=== PATIENT | male | born 1945 | race African-American/Black ===

== ENCOUNTER 2025-05-24 19:40 | Inpatient (IN) | payer MEDICARE, MEDICAID ==
[~2025-05-24] VITALS: Ht 182.9 cm; Wt 83.1 kg
[~2025-05-24 19:40] MED LIST: ABIR250T MT; AMLO10TA80 MT; IRBE300T25 MT; POTA-354 MT; PRED5TAB MT; RIVA20TA MT
[2025-05-24 19:43] VITALS: O2SAT 96
[2025-05-24] MEDS: DILTIAZEM HCL 5MG/ML 5ML VIAL IV ONE (20:27)
[2025-05-24] MEDS: LEVOFLOXACIN 500MG PREMIX 100 ML IV ONE (20:27)
[2025-05-24 20:37] LABS: BASOPHILS % 0.3 % (0.0-2.0); EOSINOPHILS % 0.4 % (0.0-5.0); HEMATOCRIT. 37.3 % (42.0-52.0); HEMOGLOBIN. 12.3 g/dL (14.0-18.0); LYMPHOCYTES % 26.1 % (20.0-50.0); MEAN PLATELET VOLUME 8.6 fl (7.4-10.4); MONOCYTES % 3.3 % (2.0-8.0); NEUTROPHILS % 69.9 % (40.0-76.0); PLATELET 197 x1000/uL (130-400); RED BLOOD CELL COUNT 4.18 mill/uL (4.7-6.1); RED CELL DISTRIBUTION WIDTH 14.7 % (11.6-14.6)
[2025-05-24 20:42] LABS: INR 1.3
[2025-05-24 20:43] LABS: CREATININE 1.1 mg/dL (0.6-1.3); UREA NITROGEN BLOOD 13 mg/dL (9-23)
[2025-05-24 20:45] LABS: ASPARTATE AMINOTRANSFERASE 15 IU/L (<34); BILIRUBIN DIRECT 0.1 mg/dL (<=3.0); BILIRUBIN TOTAL 0.5 mg/dL (0.1-1.0); PROTEIN TOTAL 7.2 g/dL (6.0-8.3)
[2025-05-24 20:46] LABS: TROPONIN I HIGH SENSITIVITY 10 ng/L (3.0-53)
[2025-05-24] MEDS ORDERED: VENL-179 MT (21:19)
[2025-05-24] MEDS ORDERED: METF-1149 MT (21:19)
[2025-05-24] MEDS: SODIUM CHLORIDE 0.9% 2,700 ML IV ONE (21:41)
[2025-05-24 21:48] LABS: INFLUENZA TYPE A Presumptive Negative (Pres. Neg.)
[2025-05-24 21:49] LABS: INFLUENZA TYPE B Presumptive Negative (Pres. Neg.)
[2025-05-24 21:50] LABS: RESPIRATORY SYNCYTIAL VIRUS Not Detected (Not Detectd)
[2025-05-24 22:45] LABS: TROPONIN I HIGH SENSITIVITY 14 ng/L (3.0-53)
[2025-05-24 22:48] LABS: CLARITY URINE CLEAR (CLEAR); GLUCOSE URINE 1+ (NEGATIVE); KETONES URINE NEGATIVE (NEGATIVE); LEUKOCYTE ESTERASE URINE NEGATIVE (NEGATIVE); NITRITE URINE NEGATIVE (NEGATIVE); OCCULT BLOOD URINE NEGATIVE (NEGATIVE); PH URINE 6.0 (4.5-8.0); PROTEIN URINE NEGATIVE (NEGATIVE); SPECIFIC GRAVITY URINE 1.006 (1.005-1.030); UROBILINOGEN URINE 0.2 E.U./dL (0.2-1.0)
[2025-05-24 23:12] LABS: COLOR URINE STRAW (YELLOW)
[2025-05-24 23:14] LABS: BACTERIA URINE NONE SEEN; RBC URINE NONE SEEN /hpf (0-2); SQUAMOUS EPITHELIAL CELL URINE RARE /lpf (RARE/1+); WBC URINE NONE SEEN /hpf (0-2)
[2025-05-25] MEDS ORDERED: DOCUSATE SODIUM 100MG CAPSULE PO PRN (00:45)
[2025-05-25] MEDS ORDERED: ONDANSETRON HCL 4MG/2ML INJ IV PRN (00:45)
[2025-05-25] MEDS ORDERED: IPRATROPIUM/ALBUTEROL 0.5-3(2.5)MG/3ML NEB HHN PRN (00:45)
[2025-05-25] MEDS ORDERED: DEXTROSE 50% WATER 50ML SYRINGE IV PRN (01:00)
[2025-05-25] MEDS: SODIUM CHLORIDE 0.9% 1,000 ML IV SCH (03:13)
[2025-05-25] MEDS: VANCOMYCIN 1.75GM PMX (XELLIA) 350 ML IV NR (03:13)
[2025-05-25 04:23] VITALS: BP 135/105; PULSE 115; RESP 17; TEMP 36.7516
[2025-05-25 07:09] LABS: *AMPHETAMINES SCREEN URINE NEGATIVE (NEGATIVE); *BARBITURATES SCREEN URINE NEGATIVE (NEGATIVE); *BENZODIAZEPINES SCREEN URINE NEGATIVE (NEGATIVE); *COCAINE SCREEN URINE NEGATIVE (NEGATIVE); CANNABINOID URINE SCREEN PRESUMPTIVE POSITIVE (NEGATIVE); ECSTASY MDMA SCREEN URINE NEGATIVE (NEGATIVE); METHADONE URINE SCREEN NEGATIVE (NEGATIVE); OPIATES URINE SCREEN PRESUMPTIVE POSITIVE (NEGATIVE); PHENCYCLIDINE URINE SCREEN NEGATIVE (NEGATIVE)
[2025-05-25] MEDS: BLOOD SUGAR DIAGNOSTIC STRIP TEST SCH (07:30)
[2025-05-25 08:00] VITALS: BP 149/95; PULSE 123; RESP 18; TEMP 36.9; O2SAT 99
[2025-05-25] MEDS: INSULIN LISPRO 100 UNITS/ML SUBCUT SCH (08:00)
[2025-05-25] MEDS: APIXABAN 5 MG TABLET PO SCH (08:39)
[2025-05-25] MEDS: METOPROLOL TARTRATE 25MG TABLET PO SCH (08:40)
[2025-05-25] MEDS: PREDNISONE 5MG TABLET PO SCH (08:40)
[2025-05-25] MEDS: PANTOPRAZOLE SODIUM 40 MG/VIAL IV SCH (08:41)
[2025-05-25] MEDS ORDERED: PIPERACILLIN/TAZO 3.375G/50ML 50 ML IV SCH (09:00)
[2025-05-25 12:00] VITALS: BP 129/79; PULSE 101; RESP 15; TEMP 37.1; O2SAT 100
[2025-05-25 16:00] VITALS: PULSE 105; RESP 16; TEMP 36.7; O2SAT 100
[2025-05-25] MEDS: LEVOFLOXACIN 750MG PREMIX 150 ML IV SCH (17:47)
[2025-05-25 18:00] VITALS: BP 127/96; PULSE 112; RESP 15; O2SAT 100
[2025-05-25 20:00] VITALS: BP 103/87; PULSE 121; RESP 15; TEMP 36.8; O2SAT 100
[2025-05-25] MEDS: VANCOMYCIN 750MG/150ML (BAXTER) IV SCH (20:54)
[2025-05-25] MEDS ORDERED: LEVOFLOXACIN 500MG PREMIX 100 ML IV SCH (21:00)
[2025-05-26] VITALS: BP 134/98; PULSE 134; RESP 18; TEMP 36.7
[2025-05-26] MEDS: SODIUM CHLORIDE 0.9% 1,000 ML IV SCH (03:55)
[2025-05-26] MEDS: METOPROLOL TARTRATE 25MG TABLET PO NR (03:56)
[2025-05-26 04:00] VITALS: BP 122/86; PULSE 135; RESP 39; O2SAT 98
[2025-05-26 08:00] VITALS: BP 133/110; PULSE 106; RESP 19; TEMP 36.8; O2SAT 98
[2025-05-26] MEDS: DILTIAZEM HCL 60MG TABLET PO SCH (10:29)
[2025-05-26 12:00] VITALS: BP 114/98; PULSE 155; RESP 20; TEMP 36.8; O2SAT 99
[2025-05-26 12:03] LABS: BASOPHILS % 0.4 % (0.0-2.0); EOSINOPHILS % 0.6 % (0.0-5.0); HEMATOCRIT. 35.1 % (42.0-52.0); HEMOGLOBIN. 11.8 g/dL (14.0-18.0); LYMPHOCYTES % 40.9 % (20.0-50.0); MEAN PLATELET VOLUME 8.6 fl (7.4-10.4); MONOCYTES % 3.4 % (2.0-8.0); NEUTROPHILS % 54.7 % (40.0-76.0); PLATELET 188 x1000/uL (130-400); RED BLOOD CELL COUNT 3.97 mill/uL (4.7-6.1); RED CELL DISTRIBUTION WIDTH 14.4 % (11.6-14.6)
[2025-05-26 12:26] LABS: CREATININE 0.9 mg/dL (0.6-1.3); TRIGLYCERIDE 150 mg/dL (0-150); UREA NITROGEN BLOOD 9 mg/dL (9-23)
[2025-05-26 12:27] LABS: LDL CHOLESTEROL 85 mg/dL (5-100)
[2025-05-26 12:30] LABS: T4 FREE 1.87 ng/dL (0.89-1.76)
[2025-05-26 16:00] VITALS: BP 113/79; PULSE 60; RESP 13; TEMP 36.9; O2SAT 99
[2025-05-26 20:00] VITALS: BP 128/72; PULSE 139; RESP 31; TEMP 36.5; O2SAT 100
[2025-05-27] VITALS (9 sets, daily range): BP systolic 102–142; BP diastolic 67–93; PULSE 78–154; RESP 18–20; TEMP 36.2–36.9; O2SAT 97–100
[2025-05-27 07:43] LABS: BASOPHILS % 0.3 % (0.0-2.0); EOSINOPHILS % 0.8 % (0.0-5.0); HEMATOCRIT. 36.0 % (42.0-52.0); HEMOGLOBIN. 11.9 g/dL (14.0-18.0); LYMPHOCYTES % 42.7 % (20.0-50.0); MEAN PLATELET VOLUME 8.3 fl (7.4-10.4); MONOCYTES % 3.9 % (2.0-8.0); NEUTROPHILS % 52.3 % (40.0-76.0); PLATELET 186 x1000/uL (130-400); RED BLOOD CELL COUNT 4.07 mill/uL (4.7-6.1); RED CELL DISTRIBUTION WIDTH 14.7 % (11.6-14.6)
[2025-05-27 07:48] LABS: CREATININE 0.8 mg/dL (0.6-1.3); UREA NITROGEN BLOOD 9 mg/dL (9-23)
[2025-05-27] MEDS: POTASSIUM CHLORIDE 20MEQ TABLET SR PO SCH (09:08)
[2025-05-27] MEDS ORDERED: DIGOXIN 500MCG/2ML AMP IV PRN (09:15)
[2025-05-27] MEDS: ACETAMINOPHEN 325MG TABLET PO PRN (09:16)
[2025-05-27] MEDS: DIGOXIN 500MCG/2ML AMP IV NR (09:19)
[2025-05-27] MEDS: DIGOXIN 500MCG/2ML AMP IV SCH (17:38)
[2025-05-27] MEDS: VANCOMYCIN 1G PREMIX 200 ML IV SCH (21:24)
[2025-05-28 03:50] VITALS: BP 104/65; PULSE 71; RESP 18; TEMP 36.3; O2SAT 100
[2025-05-28 07:07] LABS: BASOPHILS % 0.5 % (0.0-2.0); EOSINOPHILS % 1.2 % (0.0-5.0); HEMATOCRIT. 33.4 % (42.0-52.0); HEMOGLOBIN. 11.1 g/dL (14.0-18.0); LYMPHOCYTES % 38.4 % (20.0-50.0); MEAN PLATELET VOLUME 8.4 fl (7.4-10.4); MONOCYTES % 2.6 % (2.0-8.0); NEUTROPHILS % 57.3 % (40.0-76.0); PLATELET 178 x1000/uL (130-400); RED BLOOD CELL COUNT 3.79 mill/uL (4.7-6.1); RED CELL DISTRIBUTION WIDTH 14.5 % (11.6-14.6)
[2025-05-28 07:23] LABS: CREATININE 0.8 mg/dL (0.6-1.3); UREA NITROGEN BLOOD 13 mg/dL (9-23)
[2025-05-28 08:00] VITALS: BP_SYST 132; BP_SYST 134; BP_SYST 137; BP_DIAS 84; BP_DIAS 91; BP_DIAS 96; PULSE 102; RESP 18; TEMP 36.6; O2SAT 99
[2025-05-28 09:58] VITALS: BP 134/91; PULSE 102; RESP 18; TEMP 97.9
[2025-05-28 12:00] VITALS: BP 145/94; PULSE 78; RESP 20; TEMP 36.9; O2SAT 98
[2025-05-28] MEDS ORDERED: MAGNESIUM OXIDE 400MG TABLET PO SCH (12:00)
[2025-05-28 12:51] VITALS: PULSE 78
[2025-05-28] MEDS: POTASSIUM CHLORIDE 20MEQ/PACKET PO SCH (12:51)
[2025-05-28] MEDS: DILTIAZEM HCL 30MG TABLET PO SCH (12:51)
== END 2025-05-28 08:50 | disposition home health service (06) | DRG 309 ==
LOC: ER 19:40 → 5EST 22:59 → EDBEDREQ 23:06 → EDBEDREQTM 23:06 → ENRESERV 05-25 03:09 → 7WST 05-26 23:46
PROVIDERS: ADMIT Hospitalist; ATTEND Hospitalist
DX: I48.91 Unspecified atrial fibrillation (principal); E87.20 Acidosis, unspecified; D64.9 Anemia, unspecified; E11.9 Type 2 diabetes mellitus without complications; E83.42 Hypomagnesemia; E87.6 Hypokalemia; Z79.01 Long term (current) use of anticoagulants; I10 Essential (primary) hypertension; F32.A Depression, unspecified; R55 Syncope and collapse; Z20.822 Contact with and (suspected) exposure to COVID-19; H54.3 Unqualified visual loss, both eyes; Z88.0 Allergy status to penicillin; Z87.891 Personal history of nicotine dependence
CPT/HCPCS: 36415; 71045; 80048; 80061; 80076; 80162; 80202; 80305; 81003; 82550; 82962; 83036; 83540; 83550; 83605; 83735; 83880; 84145; 84439; 84443; 84484; 85025; 87420; 87426; 87804; 93005; 93880; 96361; 96365; 96375; 97162; 99291; A4606; J1160; J1815; J1956; J2470; J3373; J3490; J7030; J7512